=== PATIENT | female | born 1965 | race Caucasian/White ===

== ENCOUNTER 2025-06-02 15:20 | Observation (INO) ==
--- NOTE | 2025-06-02 15:51 | Emergency Department Note ---
Impression & Plan Chest pain, Abdominal pain, Leukocytosis, UTI (urinary tract infection), Diverticulitis ED Provider Note ED Provider Note NAME: NEY WARREN AGE:60 SEX: Female : 1965 ARRIVES VIA: POV INFORMANT: Patient ED PROVIDER(s): Rylee Kaur DO CHIEF COMPLAINT: chest and abdominal pain HPI: 60-year-old female presents emergency room with complaints of chest and abdominal pain. Patient states she had diverticulitis about a week or 2 ago. States that she was on antibiotics, improved, but then started to get her pain back. She states that she has minimal eat or drink anything for the last few days. She states that she has not had a bowel movement since she left the hospital. She states that today she started having chest pain and a fluttering sensation in her chest, she folic her heart rate was high and her blood pressure was low, so she came in to be seen. PAST MEDICAL HISTORY:See Below PAST SURGICAL HISTORY:See Below FAMILY HISTORY:See Below SOCIAL HISTORY:See Below HOME MEDICATIONS:See Below ALLERGIES:See Below VITALS:See Below PHYSICAL EXAMINATION: GENERAL: alert, well appearing, well nourished, no distress, non-toxic NECK: supple, no nuchal rigidity, no adenopathy, non-tender LUNGS: Clear to auscultation. Normal chest wall mechanics, no w/r/r HEART: no murmurs, S1 normal and S2 normal ABDOMEN: abdomen soft, tender to palpation of lower abdomen suprapubic region, normo-active bowel sounds, no masses, no rebound or guarding. BACK: Back is symmetrical on inspection and there is no deformity, no midline tenderness, no CVA tenderness. SKIN: no rashes, petechiae, orbruising UPPER EXTREMITIES: upper extremities are grossly normal. FROM, nml pulses b/l. LOWER EXTREMITIES: No pitting edema. FROM, nml pulses b/l. NEURO EXAM: Normal sensorium Vital Signs: reviewed and remarkable Differential Diagnosis: Etiologies such as appendicitis, diverticulitis, obstruction, inflammatory bowel disease, renal colic, PUD, biliary pathology, pancreatitis, mesenteric ischemia, aortic pathology, infections, genitourinary, UTI, perforated viscus, as well as others were entertained. MEDICAL DECISION MAKIN-year-old female presents the emergency room with complaints of chest and abdominal pain. Consultation(s): hospitalist ER Treatment Provided: See below Diagnostics Interpreted By Me: -ECG: EKG shows normal sinus rhythm at a rate of [address] changes, some ST flattening, possible minor T wave inversions in lead III. -Cardiac Monitoring: An order was placed for continuous cardiac monitoring. The monitor shows a rate of 101 with sinus tach rhythm. -Laboratory studies: As stated above and show below. -Imaging studies: CXR - no acute changes per my read. CT abd/pelvis - diverticulitis my read Triage Nursing Note Reviewed Prior/Outside Records Reviewed Past Med/Surg History Problem List (Updated 06/02/25 @ 18:42 by Rylee Kaur DO) Diverticulitis (Acute) UTI (urinary tract infection) (Acute) Leukocytosis (Acute) Abdominal pain (Acute) Chest pain (Acute) Social History Smoking Status: Current every day smoker Preferred Language: Croatian Feels Safe at Home: Yes Allergies Allergies Allergy/AdvReac Type Severity Reaction Status Date / Time penicillin G Allergy Unknown Verified 06/02/25 18:39 Sulfa (Sulfonamide AdvReac Mild Nausea Verified 06/02/25 18:38 Antibiotics) Results & Data (ED) Vital Signs Vital Signs - 24 hr 06/02/25 15:23 06/02/25 16:03 06/02/25 16:09 Temperature 36.4 C L Temperature Source Temporal Artery Scan Pulse Rate 107 H 98 H 95 H Pulse Rate [Apical] Pulse Rate from SpO2 Sensor 95 H Respiratory Rate 16 17 17 Respiratory Effort / Characteristics Respiratory Depth Respiratory Pattern Blood Pressure 120/76 Blood Pressure [Right Arm] Blood Pressure Mean 90 Blood Pressure Mean [Right Arm] Blood Pressure Position [Right Arm] Pulse Oximetry 97 96 Oxygen Delivery Method Room Air Sepsis Recent Fever Within 48 Hours No Sepsis New/Unexplained Change in Mental Status N/A Sepsis Action Taken by Nursing No Action Required 06/02/25 16:10 06/02/25 16:10 06/02/25 16:11 Temperature Temperature Source Pulse Rate Pulse Rate [Apical] Pulse Rate from SpO2 Sensor Respiratory Rate Respiratory Effort / Characteristics Respiratory Depth Respiratory Pattern Blood Pressure 124/62 Blood Pressure [Right Arm] Blood Pressure Mean 72 Blood Pressure Mean [Right Arm] Blood Pressure Position [Right Arm] Pulse Oximetry 97 96 Oxygen Delivery Method Room Air Room Air Sepsis Recent Fever Within 48 Hours Sepsis New/Unexplained Change in Mental Status Sepsis Action Taken by Nursing 06/02/25 16:11 06/02/25 16:11 06/02/25 16:27 Temperature Temperature Source Pulse Rate 89 Pulse Rate [Apical] Pulse Rate from SpO2 Sensor 89 Respiratory Rate 14 Respiratory Effort / Characteristics Respiratory Depth Respiratory Pattern Blood Pressure 124/62 124/62 Blood Pressure [Right Arm] Blood Pressure Mean 72 72 Blood Pressure Mean [Right Arm] Blood Pressure Position [Right Arm] Pulse Oximetry 97 Oxygen Delivery Method Sepsis Recent Fever Within 48 Hours Sepsis New/Unexplained Change in Mental Status Sepsis Action Taken by Nursing 06/02/25 16:30 06/02/25 16:30 06/02/25 16:42 Temperature Temperature Source Pulse Rate 90 Pulse Rate [Apical] Pulse Rate from SpO2 Sensor 90 Respiratory Rate 14 Respiratory Effort / Characteristics Respiratory Depth Respiratory Pattern Blood Pressure 112/80 112/80 Blood Pressure [Right Arm] Blood Pressure Mean 97 97 Blood Pressure Mean [Right Arm] Blood Pressure Position [Right Arm] Pulse Oximetry 98 Oxygen Delivery Method Sepsis Recent Fever Within 48 Hours Sepsis New/Unexplained Change in Mental Status Sepsis Action Taken by Nursing 06/02/25 17:06 06/02/25 17:33 06/02/25 17:59 Temperature 37.3 C Temperature Source Oral Pulse Rate 94 H 91 H Pulse Rate [Apical] 95 H Pulse Rate from SpO2 Sensor 90 Respiratory Rate 16 16 18 Respiratory Effort / Characteristics Non-Labored Spontaneous Respiratory Depth Normal Respiratory Pattern Regular Blood Pressure Blood Pressure [Right Arm] 132/66 Blood Pressure Mean Blood Pressure Mean [Right Arm] 88 Blood Pressure Position [Right Arm] Left Lateral Pulse Oximetry 99 97 Oxygen Delivery Method Room Air Sepsis Recent Fever Within 48 Hours Sepsis New/Unexplained Change in Mental Status Sepsis Action Taken by Nursing Laboratory Data 06/02/25 15:52 06/02/25 17:03 Lab Results 06/02/25 06/02/25 Range/Units 15:52 17:03 WBC 13.25 H (4.8-10.8) K/ul RBC 4.15 L (4.20-5.40) M/uL Hgb 13.2 (12.0-16.0) g/dl Hct 36.2 L (37.0-47.0) % MCV 87.2 (80.0-100.0) fL MCH 31.8 (25.0-34.0) pg MCHC 36.5 H (32.0-36.0) g/dL RDW Std Deviation 40.9 (36.4-46.3) fL RDW Coeff of Grisel 13.0 (11.5-14.5) % Plt Count 219 (130-400) K/uL MPV 9.7 (9.4-12.4) fL Immature Gran % (Auto) 1.8 % Neut % (Auto) 72.3 % Lymph % (Auto) 18.5 % [place] % (Auto) 6.5 % Eos % (Auto) 0.6 % Baso % (Auto) 0.3 % Neut # (Auto) 9.58 H (1.40-6.50) K/uL Lymph # (Auto) 2.45 (1.20-3.40) K/uL [place] # (Auto) 0.86 H (0.11-0.59) K/uL Eos # (Auto) 0.08 (0.00-0.50) K/uL Baso # (Auto) 0.04 (0.00-0.20) K/uL Immature Gran # (Auto) 0.24 H (0.01-0.20) K/uL Sodium 134 L (136-145) mmol/L Potassium TNP 3.6 Chloride 99 (98-107) mmol/L Carbon Dioxide 23 (21-32) mmol/L Anion Gap 12 H (3-11) BUN 13 (6-23) mg/dl Creatinine 0.97 (0.6-1.2) mg/dl Est Cr Clr Drug Dosing 63.1 ml/min eGFR 66.48 BUN/Creatinine Ratio 13.4 (10-20) Glucose 114 H (70-99(Fasting)) mg/dl Lactate 1.3 (0.4-2.0) mmol/L Calcium 8.3 L (8.6-10.3) mg/dl Total Bilirubin 0.9 (0.2-1.0) mg/dl AST TNP 8 L ALT 8 (7-52) U/L Alkaline Phosphatase 59 (34-104) U/L Troponin I High Sens 10.0 (0-14) pg/ml Total Protein 6.7 (6.0-8.3) gm/dl Albumin 3.5 (3.4-5.0) gm/dl Globulin 3.2 (2.5-4.0) gm/dl Albumin/Globulin Ratio 1.1 (0.9-2) Lipase 14 (11-82) U/L Urine Color Dark Yellow Urine Appearance Cloudy A (Clear) Urine pH 6.0 (4.5-7.5) Ur Specific [place] 1.025 (1.000-1.030) Urine Protein 2+ H (Negative) Urine Glucose (UA) Negative (Negative) Urine Ketones 1+ H (Negative) Urine Blood Trace H (Negative) Urine Nitrite Negative (Negative) Urine Bilirubin 1+ H (Negative) Urine Urobilinogen Negative (Negative) Ur Leukocyte Esterase 1+ H (Negative) Urine WBC (Auto) 6-10 H (0-5) /hpf Urine RBC (Auto) 11-20 H (0-2) /hpf U Hyaline Cast (Auto) 3-5 H (0-2) /lpf U Epithel Cells (Auto) >20 H (0-2) /hpf Urine Bacteria (Auto) 2+ H (None Seen) Urine Comment Administered Medications Discontinued Medications Sodium Chloride (Nss) 1,000 mls @ 999 mls/hr IV .Q1H1M MARTIN Stop: 06/02/25 16:44 Last Infusion: 06/02/25 17:56 Dose: Infused Documented By: Admin: 06/02/25 16:16 Dose: 999 mls/hr Documented By: JESSI Ioversol (Optiray 320 100ml) 93 ml IV ONCE ONE Stop: 06/02/25 16:58 Last Admin: 06/02/25 16:58 Dose: 93 ml Documented By: ASHANTI Ondansetron HCl (Ondansetron Inj 2 Mg/Ml 2 Ml Vial) 4 mg IV NOW STA Stop: 06/02/25 15:45 Last Admin: 06/02/25 16:13 Dose: 4 mg Documented By: JESSI Imaging Data Radiologist's Impression: Abdomen/Pelvis CT 06/02/25 15:42 Clinical History: Abdominal pain Technique: Axial computed tomography images were obtained of the abdomen and pelvis after the administration of intravenous contrast. No prior CT is available for comparison. Findings: The liver is overall of normal size, attenuation, and contour with no sign of cirrhosis or significant fatty infiltration. There is a suspected 3-4 mm cyst in the right hepatic lobe. No definite Liver mass lesion is seen. The portal vein is patent. The gallbladder appears unremarkable. No bile duct dilatation is noted. The spleen is of normal size. No focal splenic lesion is evident. The pancreas appears normal with no sign of acute or chronic pancreatitis and no mass lesion noted. The pancreatic duct is of normal caliber. The adrenal glands appear unremarkable. No definite renal or proximal ureteral calculi are seen on this contrast-enhanced study. There is no hydronephrosis or perinephric stranding. No renal mass lesion is identified. There are bilateral renal cysts, measuring up to 1 cm The aorta is of normal caliber. No abdominal adenopathy is seen. There is prominence of the gastric wall that is likely due to the decompressed state. There is no sign of small bowel obstruction. There is acute diverticulitis of the sigmoid colon. There is a minimal amount of pelvic ascites. No free intraperitoneal air is identified. No distal ureteral or bladder calculi are seen. The bladder is decompressed. The iliac arteries are of normal caliber. No pelvic adenopathy is noted. The uterus has been removed There is a 6 mm right lower lobe nodule. No fracture is identified. No focal osseous lesion is seen Impression: 1. Acute diverticulitis. There is no sign of perforation or abscess formation 2. Minimal amount of free pelvic fluid 3. Small hepatic and bilateral renal cysts 4. Small right lung base nodule, likely benign but indeterminate in nature. A follow-up chest CT is recommended in 3-6 months ACT 112: Positive. There are findings on this exam that require communication between the performing entity and the patient following Patient Test Result Information Act ([place] ACT 112) guidelines. Electronically signed by Avery Kay 06-02-2025 6:20 PM Chest X-Ray 06/02/25 15:42 Clinical History: Chest pain Technique: A frontal view of the chest was obtained Findings: There are no definite pulmonary infiltrates. The heart size is at the upper limit of normal. No pleural effusion or pneumothorax is seen. There is no definite pulmonary nodule. No fracture is noted. No foreign body is seen Impression: No active disease Electronically signed by Avery Kay 06-02-2025 4:30 PM Discharge Plan Visit Data Chief Complaint: Cardiac Assessment Stated Complaint: LOW BP, HIGH HEART RATE, FLUTTERING, ABD PAIN ED Provider: Rylee Kaur Discharge Problem: Chest pain, Abdominal pain, Leukocytosis, UTI (urinary tract infection), Diverticulitis Patient Disposition: Admitted As Inpatient Condition: Fair Discharge Instructions Activity Restrictions/Additional Instructions: You have a small right lung base nodule, likely benign but indeterminate in nature. A follow-up chest CT is recommended in 3-6 months. Forms Stand Alone Forms: [facility] Referrals Referrals: PCP,NO [Physician] -
[2025-06-02 16:12] LABS: Hematocrit (blood only) 36.2 % (37.0-47.0); Hemoglobin 13.2 g/dl (12.0-16.0); Immature Granulocytes # (auto) 0.24 K/uL (0.01-0.20); Immature Granulocytes % (auto) 1.8 %; Mean Corpuscular Hemoglobin 31.8 pg (25.0-34.0); Mean Corpuscular Volume 87.2 fL (80.0-100.0); Platelet Count 219 K/uL (130-400); RDW Standard Deviation 40.9 fL (36.4-46.3); Red Blood Count 4.15 M/uL (4.20-5.40); White Blood Count 13.25 K/ul (4.8-10.8)
[2025-06-02] MEDS: ONDANSETRON INJ 2 MG/ML 2 ML VIAL IV STA (16:13)
[2025-06-02] MEDS: SODIUM CHLORIDE 0.9% 1,000 ML IV SCH ×2 (16:16→19:31)
[2025-06-02 16:17] LABS: Appearance Urine Cloudy (Clear); Bacteria Urine Automated 2+ (None Seen); Epithelial Cell Urine Auto >20 /hpf (0-2); Glucose Urine UA Negative (Negative)
--- NOTE | 2025-06-02 16:31 | XRay Report ---
Clinical History: Chest pain Technique: A frontal view of the chest was obtained Findings: There are no definite pulmonary infiltrates. The heart size is at the upper limit of normal. No pleural effusion or pneumothorax is seen. There is no definite pulmonary nodule. No fracture is noted. No foreign body is seen Impression: No active disease Electronically signed by Avery Kay 06-02-2025 4:30 PM
[2025-06-02 16:34] LABS: Alanine Aminotransferase 8 U/L (7-52); Albumin Globulin Ratio 1.1 (0.9-2); Alkaline Phosphatase 59 U/L (34-104); Anion Gap 12 (3-11); Bilirubin,Total 0.9 mg/dl (0.2-1.0); Blood Urea Nitrogen 13 mg/dl (6-23); Calcium 8.3 mg/dl (8.6-10.3); Carbon Dioxide 23 mmol/L (21-32); Chloride 99 mmol/L (98-107); Creatinine Clr Calc Pharmacy 63.1 ml/min; Globulin 3.2 gm/dl (2.5-4.0); Glucose 114 mg/dl (70-99(Fasting)); Lipase 14 U/L (11-82); Sodium 134 mmol/L (136-145); Total Protein 6.7 gm/dl (6.0-8.3)
[2025-06-02] MEDS: OPTIRAY 320 100ml IV ONE (16:58)
[2025-06-02 17:38] LABS: Potassium 3.6 mmol/L (3.5-5.1)
--- NOTE | 2025-06-02 18:22 | CT Scan Report ---
Clinical History: Abdominal pain Technique: Axial computed tomography images were obtained of the abdomen and pelvis after the administration of intravenous contrast. No prior CT is available for comparison. Findings: The liver is overall of normal size, attenuation, and contour with no sign of cirrhosis or significant fatty infiltration. There is a suspected 3-4 mm cyst in the right hepatic lobe. No definite Liver mass lesion is seen. The portal vein is patent. The gallbladder appears unremarkable. No bile duct dilatation is noted. The spleen is of normal size. No focal splenic lesion is evident. The pancreas appears normal with no sign of acute or chronic pancreatitis and no mass lesion noted. The pancreatic duct is of normal caliber. The adrenal glands appear unremarkable. No definite renal or proximal ureteral calculi are seen on this contrast-enhanced study. There is no hydronephrosis or perinephric stranding. No renal mass lesion is identified. There are bilateral renal cysts, measuring up to 1 cm The aorta is of normal caliber. No abdominal adenopathy is seen. There is prominence of the gastric wall that is likely due to the decompressed state. There is no sign of small bowel obstruction. There is acute diverticulitis of the sigmoid colon. There is a minimal amount of pelvic ascites. No free intraperitoneal air is identified. No distal ureteral or bladder calculi are seen. The bladder is decompressed. The iliac arteries are of normal caliber. No pelvic adenopathy is noted. The uterus has been removed There is a 6 mm right lower lobe nodule. No fracture is identified. No focal osseous lesion is seen Impression: 1. Acute diverticulitis. There is no sign of perforation or abscess formation 2. Minimal amount of free pelvic fluid 3. Small hepatic and bilateral renal cysts 4. Small right lung base nodule, likely benign but indeterminate in nature. A follow-up chest CT is recommended in 3-6 months ACT 112: Positive. There are findings on this exam that require communication between the performing entity and the patient following Patient Test Result Information Act ([place] ACT 112) guidelines. Electronically signed by Avery Kay 06-02-2025 6:20 PM
[2025-06-02] MEDS ORDERED: HYDROmorphone INJ 0.5 MG/0.5 ML SYR IV PRN (19:19)
[2025-06-02] MEDS ORDERED: ACETAMINOPHEN 1,000 MG/100 ML VIAL IV PRN (19:19)
[2025-06-02] MEDS: KETOROLAC TROMETHAMINE 15 MG/ML VIAL IV STA (19:22)
[2025-06-02] MEDS: metroNIDAZOLE 500 MG/100 ML BAG IV STA (19:23)
[2025-06-02] MEDS: CIPROFLOXACIN / D5W 400 MG/200 ML BAG IV STA (19:23)
--- NOTE | 2025-06-02 19:28 | History & Physical Report ---
Date of Service June 02, 2025 Assessment & Plan (1) Diverticulitis: (2) UTI (urinary tract infection): Plan Assessment/plan Acute diverticulitis Acute UTI Patient presents to the hospital with 3 to 4 days of left lower abdominal, chills and decreased appetite. Recently admitted in OSH with similar complaints; treated with course of antibiotic for acute diverticulitis. Leukocytosis present on admission CT abdomen pelvis on admission concerning for acute sigmoid diverticulitis Urinalysis positive for UTI Bowel rest with clear liquid diet; advance as tolerated Antibiotics with ceftriaxone and Flagyl Will follow-up on urine culture NSS at 100 cc/h Pain control With IV Tylenol, oxycodone and Dilaudid Hypertensioncontinue on metoprolol, hold losartan Mood disordercontinue risperidone, duloxetine, Lamictal Chronic opioid usecontinue on oxycodone as needed Full code DVT prophylaxis heparin Time spent evaluating patient, direct bedside care, chart review, placing orders, interpretation of diagnostic studies, discussion with consultants, patient, and family members, as well as other required patient management activities is 75 minutes Please note the above document was generated using voice recognition software. It may contain grammatical, syntax or spelling errors. Any formal questions or concerns about the content, text or information contained within the body of this dictation should be directly addressed to the provider for clarification History of Present Illness Chief Complaint: Abdominal pain for 4 days Primary Care Provider: SHANTEL Batista History obtained from chart review, interview with the patient and discussed with the ED provider Past medical history of hypertension, mood disorder Patient was recently admitted in [facility] on 05/18 with acute sigmoid diverticulitis for which she was treated with 3 days of inpatient antibiotic and oral course of antibiotics. After the course of the antibiotics, patient reported improvement in symptoms; however reported to develop constipation for which which she started taking Linzess and senna. Patient reported that since last 3 to 4 days, she is having recurrence of similar abdominal pain. She denies fever, reports chills. She reports low appetite, no nausea, vomiting. She reports burning of the urine and increased urgency. No complaint of chest pain, dizziness, visual changes, weakness/numbness of any body part Allergies Allergy/AdvReac Type Severity Reaction Status Date / Time penicillin G Allergy Unknown Verified 06/02/25 18:39 Sulfa (Sulfonamide AdvReac Mild Nausea Verified 06/02/25 18:38 Antibiotics) Home Medications Medication Instructions Recorded Confirmed Type buspirone 7.5 mg tablet 7.4 mg PO BID 06/02/25 06/02/25 History buspirone 7.5 mg tablet 7.5 mg PO BID 06/02/25 06/02/25 History clonazepam 1 mg tablet 1 mg PO BID PRN Other 06/02/25 06/02/25 History clonazepam 1 mg tablet 1 mg PO TID PRN Anxiety 06/02/25 06/02/25 History duloxetine 60 mg capsule,delayed 60 mg PO DAILY 06/02/25 06/02/25 History release duloxetine 60 mg capsule,delayed 60 mg PO DAILY 06/02/25 06/02/25 History release lamotrigine 50 mg tablet,extended 150 mg PO HS 06/02/25 06/02/25 History release 24 hr lamotrigine 50 mg tablet,extended 150 mg PO HS 06/02/25 06/02/25 History release 24 hr linaclotide 72 mcg capsule 72 mcg PO DAILY 06/02/25 06/02/25 History (Linzess) losartan 100 mg tablet 100 mg PO DAILY 06/02/25 06/02/25 History losartan 100 mg tablet 100 mg PO DAILY 06/02/25 06/02/25 History metoprolol succinate 50 mg 50 mg PO DAILY 06/02/25 06/02/25 History tablet,extended release 24 hr metoprolol succinate 50 mg 50 mg PO DAILY 06/02/25 06/02/25 History tablet,extended release 24 hr ondansetron HCl 4 mg tablet 4 mg PO Q8H PRN n/v 06/02/25 06/02/25 History oxycodone 10 mg tablet 10 mg PO Q8H PRN Pain 06/02/25 06/02/25 History pantoprazole 40 mg tablet,delayed 40 mg PO DAILY 06/02/25 06/02/25 History release pantoprazole 40 mg tablet,delayed 40 mg PO DAILY 06/02/25 06/02/25 History release prazosin 1 mg capsule 1 mg PO HS 06/02/25 06/02/25 History Past Med/Surg History Problem List (Updated 06/02/25 @ 18:42 by Rylee Kaur DO) Diverticulitis (Acute) UTI (urinary tract infection) (Acute) Leukocytosis (Acute) Abdominal pain (Acute) Chest pain (Acute) Social History Smoking Status: Current every day smoker Preferred Language: Icelandic Feels Safe at Home: Yes Review of Systems Review of Systems: All systems reviewed & are unremarkable except as noted in Subjective Physical Exam Physical Exam: On physical examination; Constitutional: WD/WN, vitals as above, NAD, sitting up in bed, pleasant, conversing easily Respiratory: normal respiratory effort, lungs clear to auscultation, no wheeze, rales, rhonchi. Normal insp/exp effort, no accessory muscle use Cardiovascular: RRR, no murmur, no edema Vessels: no JVD or carotid bruit Chest: normal inspection of chest Abdomen: Tenderness in left lower quadrant. No guarding/rigidity Neurologic: PERRL, EOMI, accommodation nl, no face palsy, no dysarthria CN's II- XI intact bilaterally and moves all extremities Psychiatric: A+Ox3, euthymic affect Results & Data Results & Data Vital Signs (Past 12 Hours) Vital Signs Temp Pulse Pulse Resp BP BP Pulse Ox 06/02/25 19:00 94 H 18 99/76 L 99 06/02/25 17:59 37.3 C 95 H 18 132/66 97 06/02/25 17:33 91 H 16 99 06/02/25 17:06 94 H 16 06/02/25 16:42 90 14 98 06/02/25 16:30 112/80 06/02/25 16:30 112/80 06/02/25 16:27 89 14 97 06/02/25 16:11 124/62 06/02/25 16:11 124/62 06/02/25 16:11 124/62 06/02/25 16:10 96 06/02/25 16:10 97 06/02/25 16:09 95 H 17 96 06/02/25 16:03 98 H 17 06/02/25 15:23 36.4 C L 107 H 16 120/76 97 O2 Del Method 06/02/25 19:00 Room Air 06/02/25 17:59 Room Air 06/02/25 17:33 06/02/25 17:06 06/02/25 16:42 06/02/25 16:30 06/02/25 16:30 06/02/25 16:27 06/02/25 16:11 06/02/25 16:11 06/02/25 16:11 06/02/25 16:10 Room Air 06/02/25 16:10 Room Air 06/02/25 16:09 06/02/25 16:03 06/02/25 15:23 Room Air Code Status & VTE Plan VTE Prophylaxis Plan VTE Prophylaxis will be ordered: Yes
[2025-06-02] MEDS: HYDROmorphone INJ 0.5 MG/0.5 ML SYR IV STA (19:32)
[2025-06-02] MEDS: ADVANCED PROBIOTIC 625 MG CAPSULE PO SCH (19:46)
[2025-06-02] MEDS: cefTRIAXone SODIUM 2,000 MG/50 ML BAG IV SCH (21:26)
[2025-06-02] MEDS: HEPARIN SOD 5,000 UNIT/0.5 ML VIAL SQ SCH (23:03)
[2025-06-02] MEDS: clonazePAM 1 MG TAB PO PRN (23:03)
[2025-06-02] MEDS: lamoTRIgine 100 MG TAB PO SCH (23:24)
[2025-06-03] MEDS: metroNIDAZOLE 500 MG/100 ML BAG IV SCH (02:47)
[2025-06-03] MEDS: ONDANSETRON INJ 2 MG/ML 2 ML VIAL IV STA (04:13)
[2025-06-03] MEDS: METOPROLOL SUCC 50MG EXT REL TAB PO SCH (08:40)
--- NOTE | 2025-06-03 11:22 | Hospitalist Progress Note ---
Date of Service June 03, 2025 Assessment & Plan (1) Diverticulitis: (2) UTI (urinary tract infection): Plan Assessment/plan Acute diverticulitis Acute UTI Patient presents to the hospital with 3 to 4 days of left lower abdominal, chills and decreased appetite. Recently admitted in OSH with similar complaints; treated with course of antibiotic for acute diverticulitis. Leukocytosis present on admission CT abdomen pelvis on admission concerning for acute sigmoid diverticulitis Urinalysis positive for UTI Continue with clear liquid diet; advance to full liquid if able to tolerate continue Antibiotics with ceftriaxone and Flagyl Will follow-up on urine culture continue NSS at 100 cc/h Pain control With IV Tylenol, oxycodone and Dilaudid Hypertensioncontinue on metoprolol, hold losartan Mood disordercontinue risperidone, duloxetine, Lamictal Chronic opioid usecontinue on oxycodone as needed Full code DVT prophylaxis heparin Time spent evaluating patient, direct bedside care, chart review, placing orders, interpretation of diagnostic studies, discussion with consultants, patient, and family members, as well as other required patient management activities is 50 minutes Please note the above document was generated using voice recognition software. It may contain grammatical, syntax or spelling errors. Any formal questions or concerns about the content, text or information contained within the body of this dictation should be directly addressed to the provider for clarification Admission and Anticipated Discharge Date Admission Date: June 02, 2025 Subjective Patient seen and examined at bedside. She still continues to report pain in lower left quadrant and urinary urgency. Review of Systems Review of Systems: All systems reviewed & are unremarkable except as noted in Subjective Physical Exam Physical Exam: On physical examination; Constitutional: WD/WN, vitals as above, NAD, sitting up in bed, pleasant, conversing easily Respiratory: normal respiratory effort, lungs clear to auscultation, no wheeze, rales, rhonchi. Normal insp/exp effort, no accessory muscle use Cardiovascular: RRR, no murmur, no edema Vessels: no JVD or carotid bruit Chest: normal inspection of chest Abdomen: Tenderness in left lower quadrant. No guarding/rigidity Neurologic: PERRL, EOMI, accommodation nl, no face palsy, no dysarthria CN's II- XI intact bilaterally and moves all extremities Psychiatric: A+Ox3, euthymic affect Results & Data Results & Data Vital Signs (Past 12 Hours) Vital Signs Temp Pulse Pulse Resp BP Pulse Ox O2 Del Method 06/03/25 11:13 36.8 C 71 18 133/69 97 Room Air 06/03/25 08:17 36.6 C 99 H 18 126/84 97 Room Air 06/03/25 07:49 79 06/03/25 03:19 36.7 C 72 16 107/68 98 Room Air
[2025-06-03 11:29] LABS: Anion Gap 7.0 (3-11); Blood Urea Nitrogen 9.0 mg/dl (6-23); Calcium 7.6 mg/dl (8.6-10.3); Carbon Dioxide 23.0 mmol/L (21-32); Chloride 106.0 mmol/L (98-107); Creatinine Clr Calc Pharmacy 81.7 ml/min; Glucose 95.0 mg/dl (70-99(Fasting)); Potassium 3.2 mmol/L (3.5-5.1); Sodium 136.0 mmol/L (136-145)
[2025-06-03 13:21] LABS: Hematocrit (blood only) 31.3 % (37.0-47.0); Hemoglobin 11.7 g/dl (12.0-16.0); Immature Granulocytes # (auto) 0.07 K/uL (0.01-0.20); Immature Granulocytes % (auto) 0.6 %; Mean Corpuscular Hemoglobin 33.0 pg (25.0-34.0); Platelet Count 213 K/uL (130-400); RDW Standard Deviation 42.3 fL (36.4-46.3); Red Blood Count 3.55 M/uL (4.20-5.40); White Blood Count 11.05 K/ul (4.8-10.8)
[2025-06-03 13:25] LABS: Mean Corpuscular Volume 88.2 fL (80.0-100.0)
[2025-06-03] MEDS: POTASSIUM CHLORIDE / WTR 10 MEQ/100 ML PLCT IV SCH (16:06)
[2025-06-03] MEDS: ONDANSETRON INJ 2 MG/ML 2 ML VIAL IV PRN (16:44)
[2025-06-03] MEDS: ACETAMINOPHEN 325 MG TAB PO PRN (23:59)
[2025-06-04 08:02] LABS: Hematocrit (blood only) 30.4 % (37.0-47.0); Hemoglobin 11.4 g/dl (12.0-16.0); Immature Granulocytes # (auto) 0.06 K/uL (0.01-0.20); Immature Granulocytes % (auto) 0.7 %; Mean Corpuscular Hemoglobin 33.1 pg (25.0-34.0); Mean Corpuscular Volume 88.4 fL (80.0-100.0); Platelet Count 201 K/uL (130-400); RDW Standard Deviation 42.4 fL (36.4-46.3); Red Blood Count 3.44 M/uL (4.20-5.40); White Blood Count 8.61 K/ul (4.8-10.8)
[2025-06-04 08:24] LABS: Anion Gap 7.0 (3-11); Blood Urea Nitrogen 4.0 mg/dl (6-23); Calcium 7.8 mg/dl (8.6-10.3); Carbon Dioxide 22.0 mmol/L (21-32); Chloride 111.0 mmol/L (98-107); Creatinine Clr Calc Pharmacy 82.6 ml/min; Glucose 90.0 mg/dl (70-99(Fasting)); Potassium 3.5 mmol/L (3.5-5.1); Sodium 140.0 mmol/L (136-145)
--- NOTE | 2025-06-04 12:17 | Hospitalist Progress Note ---
Date of Service June 04, 2025 Assessment & Plan (1) Diverticulitis: (2) UTI (urinary tract infection): Plan Assessment/plan Acute diverticulitis Acute UTI Patient presents to the hospital with 3 to 4 days of left lower abdominal, chills and decreased appetite. Recently admitted in OSH with similar complaints; treated with course of antibiotic for acute diverticulitis. Leukocytosis present on admission- resolved CT abdomen pelvis on admission concerning for acute sigmoid diverticulitis Urinalysis positive for UTI Advance to full liquid continue Antibiotics with ceftriaxone and Flagyl Will follow-up on urine culture dc fluids, encourage oral intake Pain control With IV Tylenol, oxycodone and Dilaudid Hypokalemia- potassium supplement ordered Hypertensioncontinue on metoprolol, hold losartan Mood disordercontinue risperidone, duloxetine, Lamictal Chronic opioid usecontinue on oxycodone as needed Full code DVT prophylaxis heparin Time spent evaluating patient, direct bedside care, chart review, placing orders, interpretation of diagnostic studies, discussion with consultants, patient, and family members, as well as other required patient management activities is 50 minutes Please note the above document was generated using voice recognition software. It may contain grammatical, syntax or spelling errors. Any formal questions or concerns about the content, text or information contained within the body of this dictation should be directly addressed to the provider for clarification Admission and Anticipated Discharge Date Admission Date: June 02, 2025 Subjective Patient reports that she feels much better compared to previous day. Reports that her pain has improved as well. No fever or chills overnight. She has been afebrile. Review of Systems Review of Systems: All systems reviewed & are unremarkable except as noted in Subjective Physical Exam Physical Exam: On physical examination; Constitutional: WD/WN, vitals as above, NAD, sitting up in bed, pleasant, conversing easily Respiratory: normal respiratory effort, lungs clear to auscultation, no wheeze, rales, rhonchi. Normal insp/exp effort, no accessory muscle use Cardiovascular: RRR, no murmur, no edema Vessels: no JVD or carotid bruit Chest: normal inspection of chest Abdomen: Tenderness in left lower quadrant. No guarding/rigidity Neurologic: PERRL, EOMI, accommodation nl, no face palsy, no dysarthria CN's II- XI intact bilaterally and moves all extremities Psychiatric: A+Ox3, euthymic affect Results & Data Results & Data Vital Signs (Past 12 Hours) Vital Signs Temp Pulse Pulse Resp BP BP Pulse Ox 06/04/25 11:01 36.8 C 81 18 123/80 94 06/04/25 08:04 36.9 C 81 18 111/74 98 06/04/25 07:43 78 06/04/25 03:49 37.0 C 79 16 120/72 95 O2 Del Method 06/04/25 11:01 Room Air 06/04/25 08:04 Room Air 06/04/25 07:43 06/04/25 03:49 Room Air
[2025-06-04 13:02] LABS: Cdiff Toxin B Gene (2yr or >) Positive Cdiff Gene (Neg)
[2025-06-04 13:22] LABS: Adenovirus F 40/41 PCR Not Detected (NotDetected); Campylobacter PCR Not Detected (NotDetected); Enteroaggregative E.coli(EAEC) Not Detected (NotDetected); Shiga-like Toxin E.coli (STEC) Not Detected (NotDetected); Vibrio species PCR Not Detected (NotDetected)
[2025-06-04 13:33] LABS: Cdiff Toxin A+B Negative Cdiff Toxin (Negative)
[2025-06-04] MEDS: VANCOMYCIN HCL 125 MG/2.5ML SOLN PO SCH (17:32)
[2025-06-04] MEDS: CHERRY SYRUP 5 ML UDP PO SCH (17:32)
[2025-06-05] MEDS: HYDROCORTISONE 1% OINT 30 GM TUBE EXT SCH (10:58)
--- NOTE | 2025-06-05 12:57 | Electrocardiogram Report ---
Test Reason : Blood Pressure : */* mmHG Vent. Rate : 90 BPM Atrial Rate : 90 BPM P-R Int : 130 ms QRS Dur : 82 ms QT Int : 382 ms P-R-T Axes : 43 29 52 degrees QTcB Int : 467 ms Normal sinus rhythm Nonspecific ST abnormality Abnormal ECG No previous ECGs available Confirmed by Wesley Chairez ([id number]) on 06/05/2025 12:57:07 PM Referred By: REFERRED SELF Confirmed By: Wesley Chairez
--- NOTE | 2025-06-05 13:02 | Hospitalist Progress Note ---
Date of Service June 05, 2025 Assessment & Plan (1) Diverticulitis: (2) UTI (urinary tract infection): Plan Assessment/plan Acute diverticulitis Acute UTI Patient presents to the hospital with 3 to 4 days of left lower abdominal, chills and decreased appetite. Recently admitted in OSH with similar complaints; treated with course of antibiotic for acute diverticulitis. Leukocytosis present on admission- resolved CT abdomen pelvis on admission concerning for acute sigmoid diverticulitis Urinalysis positive for UTI Urine cx pending Advance to low fiber diet. continue Antibiotics with ceftriaxone and Flagyl Will follow-up on urine culture dc fluids, encourage oral intake Pain control With IV Tylenol, oxycodone and Dilaudid Hypokalemia- potassium supplement ordered Hypertensioncontinue on metoprolol, hold losartan Mood disordercontinue risperidone, duloxetine, Lamictal Chronic opioid usecontinue on oxycodone as needed Full code DVT prophylaxis heparin Please note the above document was generated using voice recognition software. It may contain grammatical, syntax or spelling errors. Any formal questions or concerns about the content, text or information contained within the body of this dictation should be directly addressed to the provider for clarification Admission and Anticipated Discharge Date Admission Date: June 02, 2025 Subjective Patient reports that she is feeling much better. The pain in her abdomen has improved. Diarrhea frequency has also decreased. Urinary symptoms have resolved as well Review of Systems Review of Systems: All systems reviewed & are unremarkable except as noted in Subjective Physical Exam Physical Exam: On physical examination; Constitutional: WD/WN, vitals as above, NAD, sitting up in bed, pleasant, conversing easily Respiratory: normal respiratory effort, lungs clear to auscultation, no wheeze, rales, rhonchi. Normal insp/exp effort, no accessory muscle use Cardiovascular: RRR, no murmur, no edema Vessels: no JVD or carotid bruit Chest: normal inspection of chest Abdomen: Tenderness in left lower quadrant. No guarding/rigidity Neurologic: PERRL, EOMI, accommodation nl, no face palsy, no dysarthria CN's II- XI intact bilaterally and moves all extremities Psychiatric: A+Ox3, euthymic affect Results & Data Results & Data Vital Signs (Past 12 Hours) Vital Signs Temp Pulse Pulse Resp BP BP Pulse Ox 06/05/25 11:10 36.7 C 65 18 141/88 H 98 06/05/25 07:38 36.5 C 76 18 128/74 97 06/05/25 06:45 82 06/05/25 04:06 36.6 C 75 16 97/62 L 97 O2 Del Method 06/05/25 11:10 Room Air 06/05/25 07:38 Room Air 06/05/25 06:45 06/05/25 04:06 Room Air
[2025-06-06 08:21] VITALS: RESP 16
[2025-06-06 08:40] LABS: Hematocrit (blood only) 32.6 % (37.0-47.0); Hemoglobin 11.8 g/dl (12.0-16.0); Mean Corpuscular Hemoglobin 31.6 pg (25.0-34.0); Mean Corpuscular Volume 87.4 fL (80.0-100.0); Platelet Count 262 K/uL (130-400); RDW Standard Deviation 41.4 fL (36.4-46.3); Red Blood Count 3.73 M/uL (4.20-5.40); White Blood Count 6.92 K/ul (4.8-10.8)
[2025-06-06 08:48] LABS: Anion Gap 8.0 (3-11); Blood Urea Nitrogen 4.0 mg/dl (6-23); Calcium 8.3 mg/dl (8.6-10.3); Carbon Dioxide 24.0 mmol/L (21-32); Chloride 107.0 mmol/L (98-107); Creatinine Clr Calc Pharmacy 67.6 ml/min; Glucose 133.0 mg/dl (70-99(Fasting)); Potassium 3.2 mmol/L (3.5-5.1); Sodium 139.0 mmol/L (136-145)
[2025-06-06 08:51] LABS: Immature Granulocytes # (auto) 0.14 K/uL (0.01-0.20); Immature Granulocytes % (auto) 2.0 %; Polychromasia 1+
[2025-06-06] MEDS: POTASSIUM CHLORIDE CRTAB 20 MEQ TABCR PO STA ×2 (09:29→12:09)
[2025-06-06 11:35] VITALS: TEMP 98.6; O2SAT 95
--- NOTE | 2025-06-06 13:21 | Discharge Summary ---
Date of Service June 06, 2025 Admission HPI Per Admitting Provider History obtained from chart review, interview with the patient and discussed with the ED provider Past medical history of hypertension, mood disorder Patient was recently admitted in [facility] on 05/18 with acute sigmoid diverticulitis for which she was treated with 3 days of inpatient antibiotic and oral course of antibiotics. After the course of the antibiotics, patient reported improvement in symptoms; however reported to develop constipation for which which she started taking Linzess and senna. Patient reported that since last 3 to 4 days, she is having recurrence of similar abdominal pain. She denies fever, reports chills. She reports low appetite, no nausea, vomiting. She reports burning of the urine and increased urgency. No complaint of chest pain, dizziness, visual changes, weakness/numbness of any body part Admission Exam Per Admitting Provider On physical examination; Constitutional: WD/WN, vitals as above, NAD, sitting up in bed, pleasant, conversing easily Respiratory: normal respiratory effort, lungs clear to auscultation, no wheeze, rales, rhonchi. Normal insp/exp effort, no accessory muscle use Cardiovascular: RRR, no murmur, no edema Vessels: no JVD or carotid bruit Chest: normal inspection of chest Abdomen: Tenderness in left lower quadrant. No guarding/rigidity Neurologic: PERRL, EOMI, accommodation nl, no face palsy, no dysarthria CN's II- XI intact bilaterally and moves all extremities Psychiatric: A+Ox3, euthymic affect Principal Diagnosis Acute diverticulitis Discharge Exam On physical examination; Constitutional: WD/WN, vitals as above, NAD, sitting up in bed, pleasant, conversing easily Respiratory: normal respiratory effort, lungs clear to auscultation, no wheeze, rales, rhonchi. Normal insp/exp effort, no accessory muscle use Cardiovascular: RRR, no murmur, no edema Vessels: no JVD or carotid bruit Chest: normal inspection of chest Abdomen: soft, non-tender Neurologic: PERRL, EOMI, accommodation nl, no face palsy, no dysarthria CN's II- XI intact bilaterally and moves all extremities Psychiatric: A+Ox3, euthymic affect Discharge Data Allergies Allergy/AdvReac Type Severity Reaction Status Date / Time penicillin G Allergy Unknown Verified 06/02/25 18:39 Sulfa (Sulfonamide AdvReac Mild Nausea Verified 06/02/25 18:38 Antibiotics) Ordered Studies 06/02/25 15:42 CT abd pelvis IV con only Stat Hospital Course (1) Diverticulitis: (2) UTI (urinary tract infection): Plan Assessment/plan Acute diverticulitis Acute UTI-ruled out Patient presents to the hospital with 3 to 4 days of left lower abdominal, chills and decreased appetite. Recently admitted in OSH with similar complaints; treated with course of antibiotic for acute diverticulitis. Leukocytosis present on admission- resolved CT abdomen pelvis on admission concerning for acute sigmoid diverticulitis Urinalysis positive for UTI Urine cx negative Patient was admitted to medical floor; was started on IV antibiotics, bowel r est, IV fluids. Patient gradually reported improvement in her symptoms and her diet was gradually advance to low fiber. Her pain gradually improved as well. Stool studies showed C. difficile gene positive with toxin's negative suggesting colonization; patient was started on oral vancomycin once a day while she is on antibiotics. Patient was discharged home on 7 more days of antibiotics along w ith probiotic, oral vancomycin once a day. Discussed with patient that she will need colonoscopy in 6 to 8 weeks which she verbalized understanding. Patient to follow-up with her PCP after discharge. Please note the above document was generated using voice recognition software. It may contain grammatical, syntax or spelling errors. Any formal questions or concerns about the content, text or information contained within the body of this dictation should be directly addressed to the provider for clarification Total Time Total Time Spent Total Time Spent (In Minutes): 45 Total Time Includes: Examination of the Patient, Discharge Planning, Medication Reconciliation, Communication With Other Providers and Other Discharge Plan Discharge Items Patient Disposition: Home - Self-Care Reason For Visit: DIVERTICULITIS Discharge Diagnosis: Acute Diverticulitis Condition on Discharge: Fair Activity: Resume your previous activity Non-emergency contact: Primary Care Provider Call non-emergency contact if: you have any medication questions and your symptoms worsen Follow-up/Referrals: Vaishnavi Alexis CRNP [Primary Care Provider] - 06/14/25 2:20 pm Diet: Regular Addtl Attending Provider Instructions: You were admitted to the hospital with acute diverticulitis. You were treated with antibiotic during the hospitalization. You are prescribed following antibiotic for 7 more days to complete the course; Take ciprofloxacin 500 mg twice a day for 7 days Take Flagyl 500 mg 3 times a day for 7 days Your stool was found to have C. difficile colonization; please take vancomycin tablet once a day for next 10 days. Please take probiotic daily. Please follow-up with your primary care doctor. You will need colonoscopy in 6 to 8 weeks to check on your colon. Please follow a low fiber diet for the next 4 weeks. Pending Studies at Discharge: No Stand-Alone Forms: My [facility], Work/School Release, Smoking Cessation Medications and DC Order Prescriptions: New Advanced Probiotic 625 mg (10 billion cell) Capsule 2 cap PO DAILY 10 Days Qty: 20 0RF ciprofloxacin HCl 500 mg tablet 500 mg PO BID 7 Days Qty: 14 0RF metronidazole 500 mg tablet 500 mg PO Q8H 7 Days Qty: 21 0RF vancomycin [Vancocin] 125 mg capsule 125 mg PO DAILY 10 Days Qty: 10 0RF Continued metoprolol succinate 50 mg tablet extended release 24 hr 50 mg PO DAILY clonazepam 1 mg tablet 1 mg PO BID PRN (Reason: Other) buspirone 7.5 mg tablet 7.5 mg PO BID losartan 100 mg tablet 100 mg PO DAILY oxycodone 10 mg tablet 10 mg PO Q8H PRN (Reason: Pain) lamotrigine 50 mg tablet extended release 24hr 150 mg PO HS Linzess 72 mcg capsule 72 mcg PO DAILY duloxetine 60 mg capsule,delayed release(DR/EC) 60 mg PO DAILY pantoprazole 40 mg tablet,delayed release (DR/EC) 40 mg PO DAILY Discontinued prazosin 1 mg capsule 1 mg PO HS Discharge Orders: Discharge Order (Routine); Ordered 06/06/25 Ordered By: Clive Olmedo/Other Patient Handouts: Diverticulosis and Diverticulitis Admission Data Admit Date/Time: 06/02/25 19:17 Attending Provider: Clive Blair Admit Provider: Clive Blair Primary Care Provider: Vaishnavi Alexis Other Providers: Clive Blair
[2025-06-06 13:45] VITALS: BP 145/82; PULSE 73
== END 2025-06-06 14:25 | disposition home or self-care (01) | DRG 392 ==
LOC: ED 15:20 → INTOOBSV 19:17 → 2N 19:17 → SUATTDRO 19:17 → 2N 21:35